=== PATIENT | male | born 1945 | race Two or more races ===

== ENCOUNTER 2020-02-09 04:32 | Day surgery (SDC) | payer MEDICARE ==
[2020-02-06 08:36] VITALS: BMI 26.3
[2020-02-09] MEDS ORDERED: MIDAZOLAM HCL 2 MG/2 ML SINGLE DOSE VIAL ONE (13:08)
[2020-02-09 13:46] VITALS: BP 151/83; PULSE 61; TEMP 96
--- NOTE | 2020-02-09 14:01 | OP ---
Operative Note - Note: Operative Date: 02/09/20 Pre-Operative Diagnosis: Left renal stone Operation: Left ESWL Findings: 4 mm mid pole Left renal stone Post-Operative Diagnosis: Same as Pre-op Surgeon: Rudi Tong Anesthesia: Regional Estimated Blood Loss (mls): 0 Operative Report Dictated: Yes
--- NOTE | 2020-02-09 18:22 | OP ---
DATE OF OPERATION: 02/09/2020 PREOPERATIVE DIAGNOSIS: Left renal stone. POSTOPERATIVE DIAGNOSIS: Left renal stone. PROCEDURE: Left extracorporeal shockwave lithotripsy. ATTENDING: Rudi Tong MD. ANESTHESIA: Fractional. DESCRIPTION OF PROCEDURE: Patient was brought in the operating room, placed in a supine position on the operating room table. Ultrasonography and fluoroscopy were performed. A 4-mm left mid pole stone was identified. Shockwave lithotripsy was started after antibiotics and anesthesia had been administered. 2500 impulses at 17 joules of power were administered to the stone with excellent fragmentation of the stone was noted under realtime ultrasonography and fluoroscopy. No complications were noted. DISPOSITION: To recovery room. Stuart [id number]
== END 2020-02-09 14:46 | disposition home or self-care (01) ==
LOC: JASU-SURG 04:32
PROVIDERS: ATTEND Urology
PROC: 0TF4XZZ Fragmentation in Left Kidney Pelvis, External Approach (ICD-10-PCS; principal; 2020-02-09 12:30)
DX: N20.0 Calculus of kidney (principal); I10 Essential (primary) hypertension; E11.9 Type 2 diabetes mellitus without complications; Z79.4 Long term (current) use of insulin
CPT/HCPCS: 82962